=== PATIENT | female | born 2005 | race Caucasian/White ===

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

== ENCOUNTER 2025-02-21 18:11 | Emergency (ER) | payer SELFPAY ==
[2025-02-21 18:42] VITALS: BP 163/82; PULSE 75; RESP 16; TEMP 36.4; O2SAT 100
--- NOTE | 2025-02-21 19:02 | ED_ITS ---
HPI - Dental/Oral General Chief complaint: Dental/Oral Stated complaint: DENTAL PAIN Source: patient Mode of arrival: ambulatory Limitations: no limitations History of Present Illness HPI Narrative: Pt is a 19 y/o female presenting with c/o atraumatic L. lower dental pain. Pain began 5-6 days ago. Reports known impacted wisdom tooth--has a dentist appt. No additional complaints Related Data Allergies Allergy/AdvReac Type Severity Reaction Status Date / Time No Known Allergies Allergy Mild Verified 02/21/25 18:41 Review of Systems Review of Systems: CONSTITUTIONAL: Denies body aches, fever, chills, or sweats. EYES: Denies visual changes, redness, or discharge. ENT: Denies rhinorrhea, congestion, sore throat, or otalgia. CARDIOVASCULAR: Denies chest pain, palpitations, or edema. RESPIRATORY: Denies cough or dyspnea. GASTROINTESTINAL: Denies abdominal pain, nausea, vomiting, or diarrhea. GENITOURINARY: Denies dysuria or hematuria. SKIN: Denies rash, itching, or wounds. MUSCULOSKELETAL: Denies back pain, joint pain, or myalgia. NEUROLOGIC: Denies headache, numbness, tingling, or weakness. PSYCH: Denies depression or anxiety. All systems reviewed & are unremarkable except as noted in HPI and below Exam Narrative: GENERAL: Well-appearing, morbidly obese, well-nourished, and in no acute distress. HEAD: Normocephalic, atraumatic. EYES: EOMI. No redness or drainage. Conjunctivae normal. ENT: Mucous membranes pink and moist. Nares clear. No rhinorrhea. TMs normal bilaterally. Throat normal. Uvula midline. tooth #16 is impacted. NO trismus. No evidence of george angina. NECK: Normal AROM. Supple. CHEST: No respiratory distress. HEART: Regular rate SKIN: Warm, dry, no rash. Capillary refill normal. Normal skin turgor. NEURO: No focal deficits. Alert and oriented x3. Gait steady. PSYCH: Normal affect. No signs of depression or anxiety. Course Course Emergency Course: Discussed elevated blood pressure readings with patient and advised daily BP monitoring and f/u with PCP if persisting. Level of Care: Express Care Visit Vital Signs Vital signs: Vital Signs Temperature 97.5 F L 02/21/25 18:42 Pulse Rate 75 02/21/25 18:42 Respiratory Rate 16 02/21/25 18:42 Blood Pressure 163/82 H 02/21/25 18:42 Pulse Oximetry 100 02/21/25 18:42 Temperature 97.5 F L 02/21/25 18:42 Pulse Rate 75 02/21/25 18:42 Respiratory Rate 16 02/21/25 18:42 Blood Pressure 163/82 H 02/21/25 18:42 Pulse Oximetry 100 02/21/25 18:42 Discharge Plan Discharge Clinical Impression: Toothache, Elevated blood pressure reading in office without diagnosis of hypertension Patient Disposition: Home Condition: Stable Instructions: Toothache (ED) Additional Instructions: Go straight to ER should your symptoms become worse or should any new symptoms develop Patient Language: Luxembourgish Prescriptions: New ibuprofen 600 mg tablet 600 mg PO TID Qty: 30 0RF tramadol 50 mg tablet 50 mg PO Q6H PRN (Reason: pain) Qty: 10 0RF No Action omeprazole 40 mg capsule,delayed release(DR/EC) 40 mg PO DAILY 30 Days Qty: 30 0RF Follow-up/Referrals: PHYSICIAN,MANAGER INSTALLATION [Primary Care Provider, Internal Medicine] - 02/22/25 Time of Disposition: 19:07
--- NOTE | 2025-02-22 10:55 | PC.NURSE ---
patient called stating antibiotic was not called in yesterday, contacted provider Mic JOSEPH and she okayed rx to be called in for this patient Pen VK 500 mg 2 tabs BID #[id number]
== END 2025-02-21 19:14 | disposition home or self-care (01) ==
PROVIDERS: Emergency Provider Registered Nurse
DX: K08.89 Other specified disorders of teeth and supporting structures (principal); R03.0 Elevated blood-pressure reading, without diagnosis of hypertension
CPT/HCPCS: 99213; G0463

== ENCOUNTER 2025-04-14 08:32 | Emergency (ER) | payer SELFPAY ==
[2025-04-14 08:52] VITALS: BP 134/82; PULSE 63; RESP 16; TEMP 36.3; O2SAT 100
--- NOTE | 2025-04-14 09:10 | ED_ITS ---
HPI - Abdominal Pain General Chief Complaint: Abdominal Pain Stated Complaint: Nausea, heartburn, back pain patient presents to the [facility] with complaints upper abdominal pain that wraps around both sides to her back. Patient reports this woke her up around 3:00 a.m. this morning. Patient states she was evaluated here for same symptoms previously was told she likely had an ulcer and was given medications. 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 Patient does not have a primary care physician and did not follow-up after this. Patient denies any vomiting, or diarrhea, Also denies cold symptoms, shortness of breath, dizziness. Related Data Allergies Allergy/AdvReac Type Severity Reaction Status Date / Time No Known Allergies Allergy Mild Verified 04/14/25 08:56 Review of Systems Constitutional: Constitutional: Reports as per HPI, Denies chills, Denies fatigue, Denies fever(s) and Denies weakness Eyes: Eyes: Reports no additional eye complaints ENT: Reports system reviewed and no additional complaints, except as documented Cardiovascular: Cardiovascular: Reports no additional cardiovascular complaints Respiratory: Respiratory: Reports as per HPI, Denies chest congestion, Denies cough, Denies dyspnea and Denies wheezing Gastrointestinal: Gastrointestinal: Reports as per HPI, Reports abdominal pain, Denies bloating, Denies constipation, Reports heartburn, Denies diarrhea, Reports nausea and Denies vomiting Genitourinary: Genitourinary: Reports no additional female genitourinary complaints Musculoskeletal: Musculoskeletal: Reports as per HPI and Denies myalgias Integumentary/Breasts: Skin/Breast: Reports as per HPI, Denies erythema and Denies rash Neurologic: Reports as per HPI, Denies vertigo, Denies dizziness, Denies headache(s) and Denies weakness Psychiatric: Psychiatric: Reports no additional psychiatric complaints Endocrine: Endocrine: Reports no additional endocrine complaints Hematologic/Lymphatic: Hematologic/Lymphatic: Reports no additional hematologic/lymphatic complaints Allergic/Immunologic: Allergic/Immunologic: Reports no additional allergic/immunologic complaints Exam Const: General: healthy appearing Nutritional Appearance: well nourished Orientation/consciousness: patient oriented x3 Limitations: no limitations Other: uncomfortable Neck: Neck: normal visual inspection and no lymphadenopathy Resp: Effort & Inspection: normal respiratory effort Auscultation: clear to auscultation bilaterally Cardio: Rate: regular rate Rhythm: regular rhythm GI: Inspection: non-distended GI Palp: Yes Soft to palpation, Yes Tenderness to palpation present (GI) (RUQ, LUQ, and epigastric ), No Guarding due to palpation present (GI), No Rigid due to palpation, No Hernia present and No Rebound tenderness present Auscultation: normal bowel sounds Skin: General skin exam: normal color Rashes: no rashes Wounds: no wounds Neuro: General: patient oriented x3 Speech: normal speech Gait exam (Neuro): Normal gait present Extrem: General: normal to inspection and no pedal edema Psych: Mental Status: mental status grossly normal Affect: normal affect Attitude: cooperative Course Course Level of Care: Express Care Visit Vital Signs Vital signs: Vital Signs Temperature 97.4 F L 04/14/25 08:52 Pulse Rate 63 04/14/25 08:52 Respiratory Rate 16 04/14/25 08:52 Blood Pressure 134/82 04/14/25 08:52 Pulse Oximetry 100 04/14/25 08:52 Oxygen Delivery Room Air 04/14/25 08:52 Temperature 97.4 F L 04/14/25 08:52 Pulse Rate 63 04/14/25 08:52 Respiratory Rate 16 04/14/25 08:52 Blood Pressure 134/82 04/14/25 08:52 Pulse Oximetry 100 04/14/25 08:52 Oxygen Delivery Room Air 04/14/25 08:52 MDM - Abdominal Pain MDM Narrative Medical decision making narrative: ulcer versus gastritis versus gallbladder. Recommended patient to actually warehouse picker medication intake this. If symptoms do not improve or if gets significantly worsened than go to the ER for evaluation The patient was evaluated by myself in the express care. History is obtained from patient who is an independent historian and physical exam was performed. Available medical records were reviewed at this time. Exam findings show no acute concerns or changes; patient is non-toxic appearing and is in no distress. Patient is appropriate for outpatient treatment and follow-up. I have evaluated and discussed social determinants of health with the patient that could potentially impact subsequent diagnosis and treatment plans. Differential diagnosis and treatment plan were discussed with the patient. Patient agrees with discussion and after shared medical decision making agrees with plan of care. All questions were answered to the patient's satisfaction. Differential Diagnosis Differential diagnosis: Likely abdominal pain, diverticulitis and gastroenteritis Medical Records Attestation: I reviewed the patient's medical records. Discharge Plan Discharge Clinical Impression: Gastritis Patient Disposition: Home Condition: Stable Instructions: Antibiotic Form, Peptic Ulcer (ED), Gastritis (ED), Diet for Stomach Ulcers and Gastritis (ED) Additional Instructions: take the Omeprazole medication 1st thing in the morning on an empty stomach, wait 30 minutes before other medications or food. May take the Carafate medication as needed for increased pain the Zofran/ ondansetron medication is for nausea you may take this as needed. Ensure to limit acidic, fried, fatty, spicy foods as this can cause more irritation to Your stomach. If your symptoms get significantly worse or do not improve go to the emergency room for further evaluation and pain medications. Patient Language: Belgian Prescriptions: New omeprazole 40 mg capsule,delayed release(DR/EC) 40 mg PO DAILY Qty: 30 0RF sucralfate [Carafate] 100 mg/mL suspension 2 g PO BID PRN (Reason: abdominal pain) Qty: 300 0RF ondansetron 4 mg tablet,disintegrating 4 mg PO Q8H PRN (Reason: nausea and vomiting) Qty: 20 0RF Follow-up/Referrals: PHYSICIAN,THERAPIST OCCUPATIONAL [Primary Care Provider, Internal Medicine] Time of Disposition: 09:15
== END 2025-04-14 09:27 | disposition home or self-care (01) ==
PROVIDERS: Emergency Provider Nurse Practitioner Family
DX: K29.70 Gastritis, unspecified, without bleeding (principal)
CPT/HCPCS: 99213; G0463

== ENCOUNTER 2025-04-14 09:48 | Emergency (ER) | payer SELFPAY ==
--- NOTE | ~2025-04-14 | US_ITS ---
ULTRASOUND ABDOMEN LIMITED (RIGHT UPPER QUADRANT) Clinical History: ruq abd pain, r/o cholecystitis Comparison: None Technique: Right upper quadrant sonography Findings: Liver: Enlarged. Echogenic. No intrahepatic biliary ductal dilatation. Normal hepatopedal flow main portal vein. Common Duct: 7 mm. Gallbladder: Stones. Mild wall thickening. No pericholecystic fluid. Positive sonographic Shahid's sign per technologist report Pancreas: Obscured by bowel gas. Right kidney: Unremarkable. Retrohepatic IVC: Unremarkable. IMPRESSION: 1. Worrisome for acute cholecystitis. 2. Common duct prominent at 7 mm. Choledocholithiasis not excluded. 3. Hepatomegaly, with steatosis and/or hepatocellular disease. Reviewed, dictated and finalized at location R.
[2025-04-14 10:08] VITALS: BP 144/74; PULSE 60; RESP 18; TEMP 36.6; O2SAT 100
[2025-04-14 10:13] LABS: Hematocrit 43.3 % (37.0-47.0); Hemoglobin 13.7 g/dL (12.0-15.0); Immature Granulocyte Percent A 0.5 % (0-0.5); Lymphocytes Absolute Auto 1.74 K/mm3 (0.9-3.2); Mean Corpuscular HGB Conc 31.6 g/dl (32-36); Mean Corpuscular Hemoglobin 24.6 pg (26-34); Mean Corpuscular Volume 77.9 fl (80-100); Nucleated Red Blood Cells Absolute Auto 0.000 K/mm3 (0.0-0.012); Nucleated Red Blood Cells Perc 0.0 % (0.0-0.2); Platelet Count Result 397 k/mm3 (150-375); Red Blood Count 5.56 M/mm3 (4.2-5.4); White Blood Count 10.1 K/mm3 (4.5-10.0)
--- NOTE | 2025-04-14 10:19 | ED.ABDPAIN ---
HPI - Abdominal Pain General Chief Complaint: Abdominal Pain Stated Complaint: ABD Pain Time Seen by Provider: 04/14/25 10:00 History of Present Illness HPI narrative: This is a 19-year-old female with no significant past medical history of presents the ED for abdominal pain. Patient states that she was woken up this morning about 3:00 a.m. with epigastric and right upper quadrant abdominal pain. She states that was as bad as a 10/10 but is currently 7/10. She was seen at urgent care for this but was advised to come to the ED for further evaluation. She has had nausea but no vomiting. Last night she did eat Spanish she had otherwise been trying to eat healthier. Denies fevers, chills, chest pain, shortness of breath. Last normal menstrual period now. Related Data Allergies Allergy/AdvReac Type Severity Reaction Status Date / Time No Known Allergies Allergy Mild Verified 04/14/25 08:56 Review of Systems Review of Systems: Gen.: Denies fevers or chills Eyes: Denies eye pain or visual change ENT: Denies congestion Respiratory: Denies shortness of breath or cough CV: Denies chest pain or palpitations GI: As per HPI denies burning, urgency, frequency or hematuria Musculoskeletal: Denies back pain or muscle pain Neuro: Denies numbness, tingling, weakness or focal weakness Skin: Denies rash Except as documented, all other systems reviewed and negative Exam Narrative: APPEARANCE: No acute distress, nontoxic, resting in bed EYES: EOMI HEENT: Normocephalic, atraumatic, OMM RESPIRATORY: No respiratory distress Clear to auscultation bilaterally with no rhonchi wheezing or rales. CARDIOVASCULAR: Regular rate and rhythm without murmurs rubs or gallops. ABDOMINAL: Soft, tenderness to palpation to the epigastrium and the right upper quadrant without rebound or guarding. Negative Shahid sign. MUSCULOSKELETAl: Moves all extremities. No clubbing, cyanosis or edema. NEURO: Awake and alert. Following commands, speech normal, no focal deficits SKIN:: Warm, dry. No rashes lesions or abrasions PSYCHIATRIC: Normal affect/mood, Course Vital Signs Vital signs: Vital Signs Temperature 97.8 F 04/14/25 10:08 Pulse Rate 60 04/14/25 10:08 Respiratory Rate 18 04/14/25 10:08 Blood Pressure 144/74 H 04/14/25 10:08 Pulse Oximetry 100 04/14/25 10:08 Oxygen Delivery Room Air 04/14/25 10:08 Temperature 97.8 F 04/14/25 10:08 Pulse Rate 60 04/14/25 10:08 Respiratory Rate 18 04/14/25 10:08 Blood Pressure 144/74 H 04/14/25 10:08 Pulse Oximetry 100 04/14/25 10:08 Oxygen Delivery Room Air 04/14/25 10:08 MDM - Abdominal Pain MDM Narrative Medical decision making narrative: 19-year-old female presenting for abdominal pain. On initial evaluation, patient was in no acute distress, afebrile, hemodynamically stable rate she did have some mild right upper abdominal pain and a negative Shahid sign. Ultrasound right upper quadrant was obtained which was ?worrisome for acute appendicitis?. Spoke with Dr. Renteria, general surgery, recommends ciprofloxacin, pain control and will see her in the office on wednesday. Patient was feeling significantly better. Deemed appropriate for discharge at this time. Patient was given prescriptions for ciprofloxacin and Zofran. Patient was agreeable to this plan. Given strict return precautions. Differential Diagnosis Differential diagnosis: Likely other (PUD, gastritis, cholecystitis, constipation, cancer, ureterolithiasis) Medical Records Attestation: I reviewed the patient's medical records. Lab Data Attestation: I reviewed the patient's lab results. 04/14/25 10:08 04/14/25 10:08 Labs: Lab Results 04/14/25 04/14/25 04/14/25 Range/Units 10:08 12:20 12:23 WBC 10.1 H (4.5-10.0) K/mm3 RBC 5.56 H (4.2-5.4) M/mm3 Hgb 13.7 (12.0-15.0) g/dL Hct 43.3 (37.0-47.0) % MCV 77.9 L (80-100) fl MCH 24.6 L (26-34) pg MCHC 31.6 L (32-36) g/dl RDW 14.3 (11.5-14.5) % Plt Count 397 H (150-375) k/mm3 MPV 8.8 (7.4-10.4) fl Immature Gran % (Auto) 0.5 (0-0.5) % Neut % (Auto) 75.3 H (45.5-73.1) % Lymph % (Auto) 17.2 L (18.3-44.2) % [place] % (Auto) 5.5 (2.6-8.5) % Eos % (Auto) 1.1 (0-4.4) % Baso % (Auto) 0.4 (0.2-1.2) % Lymph # (Auto) 1.74 (0.9-3.2) K/mm3 [place] # (Auto) 0.6 (0.1-0.6) K/mm3 Eos # (Auto) 0.1 (0-0.3) K/mm3 Baso # (Auto) 0.0 (0.0-0.1) K/mm3 Abs Immat Gran (auto) 0.05 H (0.00-0.031) K/mm3 Absolute Neuts (auto) 7.6 H (1.3-6.7) K/mm3 Absolute Nucleated RBC 0.000 (0.0-0.012) K/mm3 Nucleated RBC % 0.0 (0.0-0.2) % Sodium 137 (134-143) mmol/L Potassium 3.8 (3.4-5.0) mmol/L Chloride 102 (98-107) mmol/L Carbon Dioxide 25 (22-30) mmol/L Anion Gap 10 (4-12) mmol/L BUN 12 (8-21) mg/dL Creatinine 0.53 L (0.7-1.0) mg/dL Estim Creat Clear Calc 215 ml/min Estimated GFR > 60 (59 - ) Glucose 125 H (65-110) mg/dL Calcium 9.6 (8.9-10.7) mg/dL Total Bilirubin 0.3 (0.2-1.3) mg/dL AST 33 (14-36) U/L ALT 31 (6-35) U/L Alkaline Phosphatase 97 (45-116) U/L Total Protein 8.1 (6.3-8.6) g/dL Albumin 4.4 (3.7-5.6) g/dL Lipase 51 (23-300) U/L Urine Color Light red H (Yellow) Urine Appearance Clear (Clear) Urine pH 7.0 (5.0-9.0) Ur Specific [place] 1.014 (1.001-1.035) Urine Protein Negative (Negative) mg/dL Urine Glucose (UA) Negative (Negative) mg/dL Urine Ketones Negative (Negative) mg/dL Ur Blood (Man) 3+ H (Negative) Urine Nitrate Negative (Negative) Urine Bilirubin Negative (Negative) Urine Urobilinogen 0.2 (<2.0) mg/dL Leukocyte Esterase Rfl 1+ H (Negative) OLGA/UL Urine RBC >100 H (0-2) /hpf Urine WBC 6-10 H (0-3) /hpf Ur Squamous Epith Cells Occasional (Few) /hpf Urine Bacteria None seen /hpf Urine Casts 0-2 POC Urine HCG, Qual Negative (Negative) Imaging Data Attestation: I personally reviewed and interpreted this imaging study as follows: Radiologist's impression: ITS Impressions Abdomen Ultrasound 04/14/25 12:20 IMPRESSION: 1. Worrisome for acute cholecystitis. 2. Common duct prominent at 7 mm. Choledocholithiasis not excluded. 3. Hepatomegaly, with steatosis and/or hepatocellular disease. Discharge Plan Discharge Clinical Impression: Cholecystitis, acute Patient Disposition: Home Condition: Stable Instructions: Antibiotic Form, Cholecystitis (ED) Additional Instructions: Take ciprofloxacin and Zofran as prescribed. Take Tylenol and ibuprofen for pain. Follow-up with Dr. Renteria's office on Wednesday for re-evaluation. Return to the ED for any new or worsening symptoms. Patient Language: Zambian Prescriptions: New ciprofloxacin HCl 500 mg tablet 500 mg PO Q12H Qty: 14 0RF ondansetron 4 mg tablet,disintegrating 4 mg PO Q8H PRN (Reason: nausea and vomiting) Qty: 14 0RF No Action omeprazole 40 mg capsule,delayed release(DR/EC) 40 mg PO DAILY Qty: 30 0RF sucralfate [Carafate] 100 mg/mL suspension 2 g PO BID PRN (Reason: abdominal pain) Qty: 300 0RF ondansetron 4 mg tablet,disintegrating 4 mg PO Q8H PRN (Reason: nausea and vomiting) Qty: 20 0RF Follow-up/Referrals: PHYSICIAN,CHARGING CAR OPERATOR [Non-Staff, Internal Medicine]
[2025-04-14 10:34] LABS: Alanine Aminotransferase 31 U/L (6-35); Albumin Level 4.4 g/dL (3.7-5.6); Alkaline Phosphatase 97 U/L (45-116); Anion Gap 10 mmol/L (4-12); Aspartate Amino Transferase 33 U/L (14-36); Bilirubin,Total 0.3 mg/dL (0.2-1.3); Blood Urea Nitrogen 12 mg/dL (8-21); Calcium 9.6 mg/dL (8.9-10.7); Carbon Dioxide 25 mmol/L (22-30); Chloride 102 mmol/L (98-107); Estimated CRCL calculation 215 ml/min; Estimated Glomerular Filt Rate > 60; Glucose 125 mg/dL (65-110); Lipase 51 U/L (23-300); Potassium 3.8 mmol/L (3.4-5.0); Sodium 137 mmol/L (134-143); Total Protein 8.1 g/dL (6.3-8.6)
[2025-04-14] MEDS: KETOROLAC 15 MG/ML VIAL (*BKC) IV PUSH (11:09)
[2025-04-14] MEDS: ONDANSETRON INJ 4 MG/2 ML VIAL IV PUSH (11:09)
[2025-04-14 12:25] LABS: BEDSIDEPREGUCG Negative (Negative)
[2025-04-14 12:34] LABS: Non Pathogenic Casts 0-2
[2025-04-14 12:41] LABS: Add Urine Microscopic? YES; Appearance Urine Clear (Clear); Glucose Urine UA Negative (Negative); Leukocyte Esterase Ur 1+ LEU/UL (Negative); Nitrate Urine Negative (Negative); Specific Grav Ur 1.014 (1.001-1.035)
== END 2025-04-14 13:28 | disposition home or self-care (01) ==
PROVIDERS: Emergency Provider Student in an Organized Health Care Education/Training Program; PCP Emergency Medicine
DX: K81.0 Acute cholecystitis (principal); R16.0 Hepatomegaly, not elsewhere classified; K76.0 Fatty (change of) liver, not elsewhere classified
CPT/HCPCS: 36415; 76705; 80053; 81001; 81025; 83690; 85025; 87086; 87186; 96374; 96375; 99284; J1885; J2405